=== PATIENT | female | born 1945 | race Caucasian/White ===

== ENCOUNTER → 2016-09-15 | Outpatient (CLI) | payer MEDICARE, OTHER ==
[~2016-09-15] MED LIST: ASPIRIN EC81 MG PO; BONIVA150 MG PO; CLOPIDOGREL75 MG PO; COZAAR100 MG PO; DITROPAN XL5 MG PO; FENOFIBRATE134 MG PO; GLUCOPHAGE1000 MG PO; INVOKANA100 MG PO; LANTUS (IN100 UNIT/M SUB-Q; LASIX20 MG PO; LIPITOR10 MG PO; LOPRESSOR50 MG PO; NORVASC10 MG PO; PRILOSEC20 MG PO; TRAZODONE HCL50 MG PO; TRULICITY0.75 MG/0. SUB-Q; VITAMIN B-122000 MC1 PO
== END | disposition disaster alternative care site (69) ==
LOC: GCAR 09:00
DX: I25.10 Atherosclerotic heart disease of native coronary artery without angina pectoris (principal); E11.22 Type 2 diabetes mellitus with diabetic chronic kidney disease; E78.5 Hyperlipidemia, unspecified; N18.3 Chronic kidney disease, stage 3 (moderate); I65.23 Occlusion and stenosis of bilateral carotid arteries

== ENCOUNTER → 2017-03-01 | Day surgery (SDC) | payer MEDICARE, OTHER ==
[~2017-03-01] VITALS: Ht 152.4 cm; Wt 76.5 kg
== END ==
LOC: GPOC 02-23 14:00 → GEND 08:28
PROC: 0DB88ZX Excision of Small Intestine, Via Natural or Artificial Opening Endoscopic, Diagnostic (ICD-10-PCS; principal; 2017-03-01)
PROC: 0DB68ZX Excision of Stomach, Via Natural or Artificial Opening Endoscopic, Diagnostic (ICD-10-PCS; 2017-03-01)
DX: K21.9 Gastro-esophageal reflux disease without esophagitis (principal); I10 Essential (primary) hypertension; E11.9 Type 2 diabetes mellitus without complications; E78.00 Pure hypercholesterolemia, unspecified; Z87.442 Personal history of urinary calculi; Z90.49 Acquired absence of other specified parts of digestive tract; Z90.710 Acquired absence of both cervix and uterus; M81.0 Age-related osteoporosis without current pathological fracture; H40.9 Unspecified glaucoma; Z86.73 Personal history of transient ischemic attack (TIA), and cerebral infarction without residual deficits; E83.52 Hypercalcemia; K44.9 Diaphragmatic hernia without obstruction or gangrene; Z79.4 Long term (current) use of insulin; Z79.899 Other long term (current) drug therapy; Z79.82 Long term (current) use of aspirin
CPT/HCPCS: J0360; J2001; J2250; J7030

== ENCOUNTER → 2017-03-26 | Outpatient (CLI) | payer MEDICARE, OTHER | END | disposition disaster alternative care site (69) | LOC: GRAD 07:24 | DX: I10 Essential (primary) hypertension (principal); N26.1 Atrophy of kidney (terminal); K76.0 Fatty (change of) liver, not elsewhere classified | CPT/HCPCS: A9577; C8902 ==